=== PATIENT | female | born 1970 | race Caucasian/White ===

== ENCOUNTER 2016-03-26 05:42 | Day surgery (SDC) | payer OTHER ==
[~2016-03-26] VITALS: Ht 149.9 cm; Wt 73.7 kg
[2016-03-26] VITALS (12 sets, daily range): BP systolic 117–157; BP diastolic 6–87; PULSE 76–131; RESP 9–20; O2SAT 95–100
[~2016-03-26 05:42] MED LIST: ALPR0.5T PO; AMT50T PO; FLUO20TA28 PO
[2016-03-26] MEDS ORDERED: Dexamethasone 4 mg/mL Inj ONE (05:43)
[2016-03-26] MEDS ORDERED: Ondansetron 2 mg/mL 2 mL Inj ONE (05:43)
[2016-03-26] MEDS ORDERED: Lidocaine PF 1% 30 mL Inj ONE (05:43)
[2016-03-26] MEDS ORDERED: fentaNYL-PF 50 mCg/mL 2 mL Inj ONE (05:43)
[2016-03-26] MEDS ORDERED: Propofol 10,000 mCg/mL 20 mL Inj ONE (05:43)
[2016-03-26] MEDS: Lactated Ringer's 1,000 ML IV SCH ×2 (05:55→07:16)
--- NOTE | 2016-03-26 07:03 | PCM.HPANE ---
Patient Data Surgeon Admitting Provider: Attending Provider:Elder Andrade DO Primary Care Physician:Jonny Freeman MD Other Provider:Floresita Escobar Anesthesia Reason for Visit Right Wrist Gangion Cyst, Right Carpal Tunnel Synd Ht/WT & BMI Height (Feet): 4 Height (Inches): 11 Weight (Kilograms): 73.7 Body Mass Index 32.00 Allergies Coded Allergies: No Known Allergies (Verified Allergy, Unknown, 05/25/07) Past Anesthesia History Anesthesia History: Denies:: Abnormal Airway, Anesthesia Reactions, Difficult Intubation, Fam Anesthesia Reaction Diabetes History Hx Diabetes?: No MRSA MRSA: No Medications Hypertension Medication: No Home Meds Incl Beta Becca: No Reported Medications Alprazolam (Xanax)0.5 Mg Tablet0.5 Mg PO BID PRN For Anxiety Ref 0 03/24/16 Fluoxetine 20 Mg Pcculq86 Mg PO DAILY Ref 0 03/24/16 Amitriptyline 50 Mg Tab50 Mg PO HS Ref 0 03/24/16 History HEENT History: Denies:: Abnormal Airway Cataracts Difficult Intubation Dysphagia Glaucoma Hearing Problem Sinus Problem TMJ Hx of Heart Problems?: No Cardiovascular History: Denies:: AICD Coronary Artery Disease Edema Heart Murmur Hypertension Irregular Heartbeat Pacemaker Peripheral Vascular Respiratory History: Denies:: Asthma COPD Emphysema Oxygen Administration Pneumonia (remote hx of, ) Tuberculosis Use of C-PAP Machine Use of Inhalers / NEBS Hx Neurologic Problems?: No Neurological History: Denies:: CVA Dementia Dizziness Headaches Multiple Sclerosis Parkinson's Disease Seizures TIA Hx of GI Problems?: Yes Gastrointestinal History: Positive for:: Hepatitis (hep C current - LFTs being monitored- wnl now) Denies:: Cirrhosis Diverticulitis Gall Bladder Disease Gastroesphageal Reflux Gastrointestinal Bleeding Heartburn Hiatal Hernia Liver Disease Rectal Bleeding Hx of Problems?: Yes Genitourinary History: Positive for:: Kidney Stones (past hx of, surgery for) Female Hx: Denies:: Currently (HYSTERECTOMY) Problems with Breasts? Skin History: Denies:: History Skin Disorders? Pressure Ulcers Hx Musculoskeletal Problems?: Yes Musculoskeletal History: Positive for:: Musculoskeletal Trauma (right carpal tunnel current admission ) Denies:: Back Injury Fibromyalgia Joint Replacement Osteoarthritis Rheumatoid Arthritis Systemic Lupus Hx of Psycho/Social Problems?: Yes Psycho Social History: Positive for:: Anxiety Hx Depression Hx Surgeries?: Yes (bladder lift, hysterectomy) Hx Any Other Health Problems?: Yes Other History: Denies:: Cancer Thyroid Disease History Blood Transfusions: Positive for:: Accept Blood Products? Denies:: Blood Transfusions Hx Diabetes: No Hx Alcohol Use: YesAlcoholic Drinks Per Day: 4-5 drinks weeklyHx Substance Use : NoHave You Smoked inLast 12 mo: No Stop/Bang S-Snoring: Do You Snore Loudly: No T-Tired: feel tired, fatigued: Yes O-Obsered: Observed not breath: No P-Blood Pressure: treated: No B- Body Mass Index > 35 kg/m2: No A- Age over 50: No N- Neck Large Circumference: No G- Gender Male: No MINE Total Score: 1 MINE Risk Assessment: Low Risk, <3 Yes Risk Assessment Category Category 1A: Patient has history of documented sleep apnea, and HAS NOT received any narcotic, sedative or anesthesia administration during this stay. Category 1B: Patient has history of documented sleep apnea, and HAS received any narcotic , sedative or anesthesia administration during this stay Category 2: Patient has SUSPECTED Obstructive Sleep Apnea, and HAS received any narcotic , sedative or anesthesia administration during this stay. Category 3: Patient has SUSPECTED Obstructive Sleep Apnea and HAS NOT received narcotic, sedative or anesthesia administration during this stay. Category 4: Outpatient in Procedural Areas with known sleep apnea or who screen positive for High Risk via the STOP/BANG questionnaire. Exam Exam Vital Signs Vital Signs Date Time Temp Pulse Resp B/P Pulse Ox O2 Delivery O2 Flow Rate FiO2 03/26/16 06:00 36 76 18 117/6 97 Room Air General Appearance: Alert, Oriented X3, Cooperative, No Acute Distress HEENT/AIRWAY: MP 1, Neck Movement (FROM\) Lungs: Normal Air Movement Heart: Exam Unremarkable Meds/Labs/Diagnostics Admission Meds Current Medications Lactated Ringer's (Lr) 1,000 ml @ 120 mls/hr [id number] IV Last administered on t 05:55; Start 03/26/16 at 05:00; Stop 03/26/16 at 13:19 Plan Impression Patient chart reviewed, patient interviewed and anesthestic plan with risks, benefits, and alternatives discussed, and informed consent obtained. NPO Status: 03/26/16 SIP WATER 0430 ASA Physical Status: ASA1 Normal Healthy Anesthetic Plan: GA Bene/Risks/Altern/Consents: Yes HP Complete Prior to Induction: Yes Yordan Hartmann MD Mar 26, 2016 07:03
[2016-03-26] MEDS ORDERED: HYDROcodone-APAP 5-325 mg Tablet PO PRN (07:20)
[2016-03-26] MEDS ORDERED: Lidocaine 1%-Epi 1:100,000 20 mL Inj INFILTRATE ONE (07:41)
[2016-03-26] MEDS ORDERED: Lactated Ringer's 500 ML IV PRN (07:41)
[2016-03-26] MEDS ORDERED: Lactated Ringer's 1,000 ML IV SCH (07:41)
[2016-03-26] MEDS ORDERED: Phenylephrine 10,000 mCg/mL Inj IVPUSH PRN (07:45)
[2016-03-26] MEDS ORDERED: MetoCLOpramide 5 mg/mL 2 mL Inj IVPUSH PRN (07:45)
[2016-03-26] MEDS ORDERED: Dexamethasone 4 mg/mL Inj IVPUSH PRN (07:45)
[2016-03-26] MEDS ORDERED: HYDROmorphone 1 mg/mL Inj IVPUSH PRN (07:45)
[2016-03-26] MEDS ORDERED: EPHEDrine Sulfate 50 mg/mL Inj IVPUSH PRN (07:45)
[2016-03-26] MEDS ORDERED: Ondansetron 2 mg/mL 2 mL Inj IVPUSH PRN (07:45)
--- NOTE | 2016-03-26 08:22 | PCM.ANEP2 ---
Post Anesthesia Evaluation ASA/CMS Post Anesthesia VS in Patient's Normal Range?: Yes Resp Stable; Airway Patent?: Yes CV Function & Hydration Stable: Yes Mental Status Recovered?: Yes Pain control Satisfactory?: Yes N/V Control Satisfactory?: Yes Yordan Hartmann MD Mar 26, 2016 08:22
--- NOTE | 2016-03-26 08:22 | PCM.ANEP1 ---
Post Anesthesia Phase 1 PACU Phase 1 Assessment Vital Signs Vital Signs Date Time Temp Pulse Resp B/P Pulse Ox O2 Delivery O2 Flow Rate FiO2 03/26/16 08:20 119 20 147/83 99 Nasal Cannula 2 03/26/16 08:15 120 16 130/72 98 Nasal Cannula 2 03/26/16 08:10 131 20 126/74 99 Nasal Cannula 4 03/26/16 08:08 36.3 128 20 126/65 99 Nasal Cannula 4 03/26/16 06:00 36 76 18 117/6 97 Room Air Anesthetic Administered: GA Level of Alertness: Awake, talking WHITE's with Equal Strength: Yes Pain: No Nausea or Vomiting: No Oxygen Delivery: Nasal Cannula Lungs: Normal Air Movement Yordan Hartmann MD Mar 26, 2016 08:22
[2016-03-26] MEDS: fentaNYL-PF 50 mCg/mL 2 mL Inj IVPUSH PRN ×2 (08:24→08:36)
--- NOTE | 2016-03-26 09:42 | OP ---
[address] [address] OPERATIVE REPORT PATIENT: DAVID BURNETTE : 1970 MR#: [id number] ADMIT: 03/26/2016 JOB ID: [id number] DATE OF SURGERY: 03/26/2016 PREOPERATIVE DIAGNOSIS(ES): 1. Right carpal tunnel syndrome. 2. Right volar wrist ganglion. POSTOPERATIVE DIAGNOSIS(ES): 1. Right carpal tunnel syndrome. 2. Right volar wrist ganglion. PROCEDURE: 1. Right open carpal tunnel release. 2. Right wrist excision of volar ganglion. SURGEON: Elder Andrade DO. ANESTHESIA: General. HISTORY: The patient is a pleasant 45-year-old female that presented to me originally with bilateral hand pain and paresthesias. She was treated conservatively for carpal tunnel syndrome without any relief in her symptoms, specifically to her right hand. She also demonstrated a volar wrist ganglion that was mildly bothersome to her and gradually enlarging. With the failure of conservative treatment, I offered the patient to proceed with operative intervention consisting of a right open carpal tunnel release and a right volar wrist ganglion excision. She understood the risks include, but not limited to, neurovascular injury, tendon injury, infection, failure to resolve the patient's preoperative symptoms, recurrence of the ganglion, stiffness, persistent pain which may require further intervention. The patient had all questions answered. Consent was placed in the chart. PROCEDURE IN DETAIL: The patient was brought to the operative suite and placed supine on the operating table. Surgical time-out was performed. Everyone in the room was in agreement. After appropriate anesthesia was obtained, a right upper arm tourniquet was applied and the right upper extremity was prepped and draped in a sterile fashion. Right upper extremity then exsanguinated, tourniquet inflated to 250 mmHg. The patient's carpal tunnel was approached first. A 2 cm longitudinal incision was made in line with the radial aspect of the ring finger and the ulnar aspect of the palmaris longus. The incision was kept distal to the wrist crease and proximal to Patricia cardinal line. Subcutaneous tissues were dissected with bipolar electrocautery utilized to maintain hemostasis throughout the procedure. The palmar fascia was first identified and incised longitudinally in line with the skin incision followed by exposure of the underlying transverse carpal ligament. The transverse carpal ligament was then released in its entirety to include the distal extent of the antebrachial fascia. Copious irrigation was then performed followed by closure of the skin with 5-0 nylon in a simple interrupted fashion. Attention was then turned towards the volar wrist ganglion. A 2 cm incision was made overlying the ganglion just radial to the FCR tendon. Dissection was carried down subcutaneously and identified the ganglion. The ganglion was freed up from the surrounding soft tissues and freed up also from the radial artery and its two venae comitantes. The dissection was carried down to the stalk of the ganglion which was also excised. Copious irrigation was performed followed by closure of the skin with 5-0 nylon in a simple interrupted fashion. The patient was then placed in a well-padded, well-molded volar resting splint. ESTIMATED BLOOD LOSS: Less than 1 cc. COMPLICATIONS: None. DISPOSITION: The patient tolerated the procedure well. Anesthesia was reversed. The patient was transferred back to recovery. POSTOPERATIVE PLAN: The patient will follow up in the office in two weeks. I will remove the patient's splint as well as her sutures at that time and have her start working on range of motion and scar mobilization. KAJAL
== END 2016-03-26 23:59 | disposition home or self-care (01) ==
LOC: SAS 05:42
PROVIDERS: ATTEND Orthopaedic Surgery
DX: G56.01 Carpal tunnel syndrome, right upper limb (principal); M67.431 Ganglion, right wrist; F41.9 Anxiety disorder, unspecified; B19.20 Unspecified viral hepatitis C without hepatic coma; F32.9 Major depressive disorder, single episode, unspecified; Z79.899 Other long term (current) drug therapy; Z87.891 Personal history of nicotine dependence
CPT/HCPCS: 25111; 64721; J1100; J2250; J2405; J7120